=== PATIENT | female | born 1980 | race Two or more races ===

== ENCOUNTER 2021-05-02 23:54 | Emergency (ER) | payer OTHER ==
[~2021-05-02] VITALS: Ht 162.6 cm; Wt 90.7 kg
[2021-05-03] MEDS ORDERED: EVOXAC30 MG (00:23)
[2021-05-03] MEDS ORDERED: HYDROXYCHLOROQ200 MG (00:25)
[2021-05-03] MEDS ORDERED: KETO10TA2 PO ×2 (03:01)
[2021-05-03] MEDS ORDERED: CEPHALEXIN500 MG PO (03:01)
== END 2021-05-03 03:17 ==
LOC: ER 23:54
DX: S60.572A Other superficial bite of hand of left hand, initial encounter (principal); W55.01XA Bitten by cat, initial encounter; Y93.9 Activity, unspecified; Y92.413 State road as the place of occurrence of the external cause